=== PATIENT | female | born 1975 | race Caucasian/White ===

== ENCOUNTER 2019-10-24 23:36 | Emergency (ER) | payer OTHER, SELFPAY ==
--- NOTE | ~2019-10-24 | XR_ITS ---
EXAMINATION: XR chest 2V DATE: 10/25/2019 00:42 INDICATION: Shortness of breath. Left arm and leg swelling. TECHNIQUE: PA and lateral views of the chest were obtained. COMPARISON: Chest radiograph dated 07/25/2006 FINDINGS: The lungs are clear with no focal airspace opacities, pulmonary edema, pleural effusion or pneumothor ax. The cardiomediastinal silhouette is normal. Moderate thoracic spondylosis. Chronic right acromioc lavicular joint separation with likely old healed osteotomy or fracture of the lateral clavicle and h eterotopic ossification in the region of the coracoclavicular ligament. Old right sixth and seventh r ib fractures. IMPRESSION: 1. No acute cardiopulmonary disease. Reviewed, dictated and finalized at location A.
[2019-10-24 23:38] VITALS: BP 178/101; PULSE 122; RESP 22; TEMP 36.6; O2SAT 98
[2019-10-24 23:44] VITALS: RESP 15; O2SAT 100
[2019-10-24 23:47] VITALS: PULSE 113
--- NOTE | 2019-10-24 23:59 | ECG_ITS ---
Measurements Intervals [place] Rate: 106 P: 54 LA: 126 QRS: 60 QRSD: 77 T: 47 QT: 325 QTc: 433 Interpretive Statements SINUS TACHYCARDIA POSSIBLE LEFT ATRIAL ENLARGEMENT BASELINE ARTIFACT- I, II III, AVR, AVL, AVF BORDERLINE ECG Electronically Signed On 10-25-2019 7:21:38 CDT by Micha Eid D.O.
[2019-10-25 00:04] LABS: Basophils Absolute Auto 0.1 K/mm3 (0.0-0.1); Basophils Percent Auto 0.5 % (0.2-1.2); Eosinophils Absolute Auto 0.5 K/mm3 (0-0.3); Eosinophils Percent Auto 4.8 % (0-4.4); Hematocrit 34.9 % (37.0-47.0); Hemoglobin 10.4 g/dL (12.0-15.0); Immature Granulocyte Absolute 0.03 K/mm3 (0.00-0.031); Immature Granulocyte Percent A 0.3 % (0-0.5); Lymphocytes Absolute Auto 3.04 K/mm3 (0.9-3.2); Mean Corpuscular HGB Conc 29.8 g/dl (32-36); Mean Corpuscular Hemoglobin 23.3 pg (26-34); Mean Corpuscular Volume 78.3 fl (80-100); Mean Platelet Volume 9.8 fl (7.4-10.4); Monocytes Absolute Auto 0.8 K/mm3 (0.1-0.6); Monocytes Percent Auto 7.8 % (2.6-8.5); Neutrophils Absolute Auto 5.5 K/mm3 (1.3-6.7); Neutrophils Percent Auto 55.6 % (45.5-73.1); Platelet Count Result 261 k/mm3 (150-375); Red Blood Count 4.46 M/mm3 (4.2-5.4); Red Cell Distribution Width 16.8 % (11.5-14.5); White Blood Count 9.8 K/mm3 (4.5-10.0)
[2019-10-25 00:26] LABS: Hypochromasia 1+ (NORMAL); Microcytosis 1+ (NORMAL); NT Pro B Type Natriuretic Pept 155 PG/ML (5-100); Platelet Estimate Adequate (Adequate)
[2019-10-25 00:49] LABS: Alanine Aminotransferase 13 U/L (4-35); Albumin Level 3.6 g/dL (3.5-5.1); Alkaline Phosphatase 73 U/L (38-126); Aspartate Amino Transferase 28 U/L (14-36); Bilirubin,Total 0.3 mg/dL (0.2-1.3); Blood Urea Nitrogen 11 mg/dL (7-17); Calcium 8.1 mg/dL (8.4-10.2); Carbon Dioxide 26 mmol/L (22-30); Chloride 104 mmol/L (98-107); Estimated Glomerular Filt Rate > 60; Glucose 120 mg/dL (65-105); Sodium 138 mmol/L (137-145)
--- NOTE | 2019-10-25 00:59 | ED.GENADULT ---
HPI - General Adult General Chief complaint: Unspecified Stated complaint: left sided swelling Time Seen by Provider: 10/24/19 23:48 History of Present Illness HPI narrative: Patient is a 43-year-old female who presents ER with left upper extremity and left lower extremity swelling. Ongoing for 2 weeks. When she originally noticed that she went to [facility] where lab work was obtained, they performed an ultrasound of the upper and lower extremity to rule out DVT, and then placed her on Bactrim to treat a possible cellulitis. She reports that did not improve her swelling. It continues to persist so she went to a urgent care today. They recommended that she start Lasix and come to the ER for further evaluation. Patient then went to work and came here when she was available to. She has no chest pain, but does have some mild exertional shortness of breath. She has no known trauma to the upper or lower extremity. She denies any change in skin color. No numbness or tingling. Patient denies weight loss. Related Data Home Medications Medication Instructions Recorded Confirmed albuterol sulfate INHALATION 10/25/19 Allergies Allergy/AdvReac Type Severity Reaction Status Date / Time Penicillins Allergy Mild Swelling Verified 10/24/19 23:48 of Lip/Tongue/Throat prochlorperazine Allergy Mild Seizure Verified 10/24/19 23:48 sumatriptan Allergy Mild Itching Verified 10/24/19 23:48 morphine AdvReac Itching Verified 10/24/19 23:49 SUMATRIPTAN SUCCINATE Allergy Mild Itching Uncoded 10/24/19 23:49 Review of Systems Review of Systems: All systems reviewed & are unremarkable except as noted in HPI and below Constitutional: Constitutional: Denies chills, Denies fever(s) and Denies weakness Cardiovascular: Cardiovascular: Denies chest pain and Denies radiating jaw, neck or arm pain Respiratory: Respiratory: Denies cough, Reports dyspnea and Denies wheezing Gastrointestinal: Gastrointestinal: Denies abdominal pain, Denies nausea and Denies vomiting Musculoskeletal: Musculoskeletal: Denies arthralgias and Denies joint swelling Comments: LUE/LLE swelling Integumentary/Breasts: Skin/Breast: Denies pruritus, Denies erythema and Denies rash PMFSH Past Medical History Medical History (Updated 10/25/19 @ 01:56 by Mack Hanna MD) No pertinent past medical history Surgical History Surgical History (Updated 10/25/19 @ 01:27 by Mack Hanna MD) No pertinent past surgical history Social History Social History (Updated 10/25/19 @ 01:27 by Mack Hanna MD) Tobacco type: cigarettes Gender identity (if verbalized by the patient): Female Exam Narrative: Exam Narrative: GENERAL: Well-appearing, morbidly obese, and in no acute distress. HEAD: Normocephalic, atraumatic. ENT: Mucous membranes moist. CHEST: Clear to auscultation. No respiratory distress. HEART: Tachycardic and regular. Normal peripheral pulses. ABDOMEN: Soft, nontender, nondistended. EXTREMITIES: Normal range of motion. Significant edema to the left upper and lower extremities and compared to the right. It is pitting. SKIN: Warm, dry, no rash. NEURO: Alert and oriented x3. Course Course Emergency Course: Unremarkable work-up. Patient may have some chronic lymphedema that is now developed. Will give PCP referral. Vital Signs Vital signs: Vital Signs Temperature 97.9 F 10/24/19 23:38 Pulse Rate 122 H 10/24/19 23:38 Respiratory Rate 22 H 10/24/19 23:38 Blood Pressure 178/101 H 10/24/19 23:38 Pulse Oximetry 98 10/24/19 23:38 Temperature 97.9 F 10/24/19 23:38 Pulse Rate 89 10/25/19 01:26 Respiratory Rate 12 10/25/19 01:26 Blood Pressure 132/81 10/25/19 01:26 Pulse Oximetry 94 10/25/19 01:26 Medical Decision Making Vital Signs Vital Signs: Vital Signs Temperature 97.9 F 10/24/19 23:38 Pulse Rate 122 H 10/24/19 23:38 Respiratory Rate 22 H 10/24/19 23:38 Blood Pressu
[2019-10-25 01:26] VITALS: BP 132/81; PULSE 89; RESP 12; O2SAT 94
[2019-10-25 02:05] VITALS: BP 113/69; PULSE 98; RESP 19; O2SAT 96
== END 2019-10-25 02:05 | disposition home or self-care (01) ==
PROVIDERS: Emergency Provider Emergency Medicine
DX: R60.0 Localized edema (principal); R00.0 Tachycardia, unspecified; F17.210 Nicotine dependence, cigarettes, uncomplicated
CPT/HCPCS: 36415; 71046; 80053; 83880; 85025; 93005; 99283